=== PATIENT | male | born 1975 | race Caucasian/White ===

== ENCOUNTER → 2016-11-26 | Outpatient (CLI) | payer BC ==
--- NOTE | 2016-11-27 11:07 | DI ---
XR ABDOMEN [facility]PR[facility],11/26/2016 5:06 PM: Clinical History: Left lower quadrant pain. Previous Exam: None at this facility. Findings: 3 views of the abdomen are obtained, and demonstrate a nonobstructive bowel gas pattern. There is no free air nor free fluid. There is some mild levoscoliosis of the lumbar spine centered at the L3 leve l. No pathologic calcifications are seen. Impression: No acute disease.
== END ==
LOC: MOB RAD 17:11
PROVIDERS: ATTEND Physician Assistant Medical
DX: R10.32 Left lower quadrant pain (principal)
CPT/HCPCS: 74020